=== PATIENT | female | born 1965 | race Caucasian/White ===

== ENCOUNTER → 2025-09-01 | Day surgery (SDC) | payer BC ==
[2025-08-29 10:50] VITALS: BMI 36.8
== END ==
LOC: MRI 10:37
PROVIDERS: ATTEND Orthopaedic Surgery
DX: S83.241A Other tear of medial meniscus, current injury, right knee, initial encounter (principal); Z91.041 Radiographic dye allergy status; X58.XXXA Exposure to other specified factors, initial encounter